=== PATIENT | female | born 1960 | race Caucasian/White ===

== ENCOUNTER 2020-08-24 03:19 | Emergency (ER) | payer OTHER ==
[~2020-08-24 03:19] MED LIST: ATORVASTATIN CA40 MG PO; AZITHROMYCIN250 MG PO; AZITHROMYCIN500 MG PO; BREO ELLIPTA 11 EACH INH; BROVANA15 MCG/2 M NEB; CLARITIN10 MG PO; DECADRON6 MG PO; ELIQUIS2.5 MG PO; FERROUS SULFAT325 M2 PO; IPRAT-ALBUT 0.5-3 ML INH; IPRAT-ALBUT 0.5-3 ML NEB; KEPPRA750 MG PO; LAMICTAL100 MG PO; LAMOTRIGINE ER100 MG PO; LEXAPRO10 MG PO; LEXAPRO5 MG PO; MIRALAX17 GM PO; OMNICEF 300 MG300 MG PO; PRIMIDONE250 MG PO; PROTONIX40 MG PO; RISPERDAL1 MG PO; RISPERDAL2 MG PO; SEROQUEL25 MG PO; SPIRIVA HANDIH18 MCG INH; VITAMIN C 500500 MG PO; VITAMIN D21250 MCG PO; ZANTAC150 MG PO; ZOCOR 40 MG TAB40 MG PO
[2020-08-24 04:27] LABS: BUN/CREATININE RATIO 16 (0-10)
[2020-08-24 04:28] LABS: RED BLOOD COUNT 1.67 M/UL (4.00-5.10); WHITE BLOOD COUNT 9.6 K/UL (4.5-11.0)
[2020-08-24 09:03] LABS: WHITE BLOOD COUNT 8.1 K/UL (4.5-11.0)
[2020-08-24 09:05] LABS: HEMOGLOBIN 9.4 gm/dl (12.3-15.3); RED BLOOD COUNT 3.31 M/UL (4.00-5.10)
[2020-08-24 10:27] LABS: HEMOGLOBIN 9.4 gm/dl (12.3-15.3); RED BLOOD COUNT 3.29 M/UL (4.00-5.10); WHITE BLOOD COUNT 7.8 K/UL (4.5-11.0)
== END 2020-08-24 12:39 | disposition short-term general hospital (02) ==
LOC: ER1 03:19
PROVIDERS: Emergency Medicine
DX: I21.4 Non-ST elevation (NSTEMI) myocardial infarction (principal); K92.2 Gastrointestinal hemorrhage, unspecified; D64.9 Anemia, unspecified; Z86.711 Personal history of pulmonary embolism; Z87.891 Personal history of nicotine dependence; Z20.828 Contact with and (suspected) exposure to other viral communicable diseases
CPT/HCPCS: 36430; 71045; 80053; 82270; 82550; 82553; 83735; 83874; 83880; 84484; 85025; 85027; 85379; 85610; 85730; 86850; 86900; 86901; 86920; 86922; 96365; 96375; 99285; C9113; P9016; U0002

== ENCOUNTER 2022-05-04 00:18 | Observation (INO) | payer OTHER ==
[~2022-05-04] VITALS: Ht 144.8 cm; Wt 64.2 kg
[~2022-05-04 00:18] MED LIST changes: +MIRALAX 119 GR119 GM PO; -MIRALAX17 GM PO
[2022-05-04 01:18] LABS: RED BLOOD COUNT 3.12 M/UL (4.00-5.10); WHITE BLOOD COUNT 7.4 K/UL (4.5-11.0)
[2022-05-04 01:43] LABS: BUN/CREATININE RATIO 14 (0-10)
[2022-05-04] MEDS ORDERED: METOPROLOL SUCC25 MG PO (08:48)
[2022-05-04] MEDS ORDERED: SEROQUEL50 MG PO (08:49)
[2022-05-04] MEDS ORDERED: BUSPIRONE HCL5 MG PO (08:51)
[2022-05-04] MEDS ORDERED: SYMBICORT 16010.2 GM INH (08:53)
[2022-05-05 06:18] LABS: HEMOGLOBIN 9.2 gm/dl (12.3-15.3)
[2022-05-05 06:21] LABS: RED BLOOD COUNT 3.81 M/UL (4.00-5.10); WHITE BLOOD COUNT 5.3 K/UL (4.5-11.0)
[2022-05-05 06:43] LABS: BUN/CREATININE RATIO 19 (0-10)
[2022-05-05] MEDS ORDERED: ASPIRIN EC81 MG PO (09:09)
== END 2022-05-05 09:43 | disposition home or self-care (01) ==
LOC: ER1 00:18 → PROG CARE 04:24 → CDU 04:24 → PROG CARE 04:24
PROVIDERS: Emergency Medicine; ADMIT Internal Medicine
DX: R07.89 Other chest pain (principal); D50.9 Iron deficiency anemia, unspecified; E78.5 Hyperlipidemia, unspecified; F41.9 Anxiety disorder, unspecified; E87.1 Hypo-osmolality and hyponatremia; R00.0 Tachycardia, unspecified; F79 Unspecified intellectual disabilities; G40.909 Epilepsy, unspecified, not intractable, without status epilepticus; I25.2 Old myocardial infarction; R74.8 Abnormal levels of other serum enzymes; Z86.718 Personal history of other venous thrombosis and embolism; Z87.891 Personal history of nicotine dependence; Z79.899 Other long term (current) drug therapy
CPT/HCPCS: ECHO; 36415; 36430; 71045; 80048; 80053; 80061; 82550; 82553; 84484; 85018; 85025; 85610; 85730; 86850; 86900; 86901; 86920; 86922; 93005; 93306; 96374; 96376; 99285; G0378; J1644; P9016